=== PATIENT | female | born 1995 | race Two or more races ===

== ENCOUNTER 2024-06-01 02:27 | Inpatient (IN) | payer MEDICAID, SELFPAY ==
[2024-06-01] VITALS (226 sets, daily range): BP systolic 54–172; BP diastolic 25–104; PULSE 61–121; RESP 16–99; TEMP 36.6–37; O2SAT 79–100; BMI 30.2
[2024-06-01] MEDS: RINGERS LACTATED 1000 ML 1,000 ML 125 ML IV (02:45)
[2024-06-01 03:25] LABS: Basophils % (Auto) 1 % (0-2.5); Eosinophils # (Auto) 0.1 Thou/mm3 (0.0-0.5); Eosinophils % (Auto) 1 % (0-10); Hematocrit 36.3 % (36.0-46.0); Hemoglobin 12.8 g/dL (12.0-16.0); Immature Granulocytes % (Auto) 0 % (0-0); Immature Granulocytes Auto 0.03 Thou/mm3 (0.00-0.00); Lymphocytes # (Auto) 2.8 Thou/mm3 (1.0-4.8); Lymphocytes % (Auto) 36 % (10-50); Mean Corpuscular HGB Conc 35.3 g/dl (31.0-37.0); Mean Corpuscular Volume 85 fL (80-100); Monocytes # (Auto) 0.5 Thou/mm3 (0.0-0.8); Monocytes % (Auto) 6 % (0-12); Neutrophils # (Auto) 4.5 Thou/mm3 (1.8-7.7); Neutrophils % (Auto) 57 % (37-80); Nucleated Red Blood Cell % 0 /100 WBC (0); Platelet Count 231 Thou/mm3 (140-440); RDW Standard Deviation 42.9 fL (36.4-46.3); Red Blood Count 4.27 Miln/mm3 (4.00-5.20)
[2024-06-01] MEDS: RINGERS LACTATED 1000 ML 1,000 ML 999 ML IV ×4 (04:03→11:52)
[2024-06-01 04:09] LABS: Syphilis Nonreactive (Nonreactive)
[2024-06-01] MEDS: TERBUTALINE SULF INJ 1 MG/ML VIAL 0.25 MG SC (04:59)
--- NOTE | 2024-06-01 05:41 | PD.LDHP ---
Documentation for date of: 06/01/24 OB Labor/Induct. HPI History of Present Illness Chief complaint: 28 y/o 40w 0d presents to L&D in labor with SROM. : 3 Para: 2 Term pregnancies: 2 pregnancies: 0 Living children: 2 History of Abortions: Spontaneous and Elective: 0 History of Vaginal deliveries: 2 History of sections: No History of : No MIKE: 06/01/24 Gestational Age (weeks): 40 Gestational Age (days): 0 History of present illness: 28 y/o 40w 0d presents to L&D in labor with SROM. Cervix is 5-6 cm/60/-3 vertex grossly ruptured with clear fluids. GBS is neg. Pt's has been uncomplicated with hx of nvdx2. Last [facility] [place] sono shows fetsu is LGA Growth was 85%ile, and AC is 98%ile. EFW 3900g. Since pt has been admitted, fetus has had variable decels and prolonged deceleration with tachysystole, 1 dose of terbutaline given and IUPC placed. History of Present Dating criteria: LMP confirmed by 1st trimester US Adequate Care: Yes Ultrasounds: normal 1st trimester US and normal mid trimester US Obstetrical complications: none Medical complications: none Labs Maternal Blood Type: O Pos Labs: Positive: Rubella Titre, Negative: RPR, Hepatitis B, HIV, Chlamydia, Gonorrhea and Group Beta Strep and Unknown: Herpes Type 1, Herpes Type 2 and Covid-19 Review of Systems Review of Systems Systems Reviewed: All systems reviewed, normal except as documented Past Medical History Surgical History SURGICAL: Negative Section Meds Home Medications and Allergies Home Medications ?Medication ?Instructions ?Recorded ?Confirmed ?Type prenat.vits,joshua,vbf-gnpq-vwsmb 1 tab PO QDAY 09/18/21 06/01/24 History ferrous sulfate 325 mg (65 mg 325 mg PO BID 09/25/21 06/01/24 History iron) tablet (iron) Allergies Allergy/AdvReac Type Severity Reaction Status Date / Time No Known Allergies Allergy Verified 06/01/24 03:23 OB Exam Physical Exam Vital signs: Temp Pulse Resp BP Pulse Ox 98 F 114 H 18 138/76 H 100 06/01/24 04:33 06/01/24 05:28 06/01/24 02:19 06/01/24 05:28 06/01/24 05:36 Constitutional Constitutional: moderate distress (Secondary to painful conractions) Routine HEENT Exam Head: Present normocephalic and atraumatic Eye: Present EOMI, PERRL and normal accommodation ENT: Present mucous membranes moist Routine Neck Exam Neck: Present full ROM Routine Respiratory Exam Respiratory: Absent respiratory distress Routine Cardiovascular Exam Cardiovascular: Present RRR Routine Abdominal Exam Abdominal: Present soft Comments: Gravid Uterus EFW 3900g Routine Exam External: Present normal urethra appearance; Absent lesions or lacerations Detailed Labor and Delivery Exam Dilation (cm): 5-6 Effacement (%): 60 Cervix position: posterior station: -3 Consistency: soft Presentation: Vertex Membranes: ruptured Amniotic fluid: clear Baseline heart rate: 150 monitor accelerations: 15x15 monitor decelerations: Variable local intermodal truck driver variability: Moderate (11-25) Contraction frequency (min): 2-3 Routine Extremities Exam Extremities: Present full ROM Routine Back/Spine/Pelvis Exam Back/Spine: Present full ROM Routine Skin Exam Skin: Present intact, dry and warm Routine Neurological Exam Neurological: Present alert, oriented X3 and CN II-XII intact Routine Psychiatric Exam Psychiatric: Present normal affect and normal thought process OB Results Labs 06/01/24 02:45 Labs: Short CBC 06/01/24 Range/Units 02:45 WBC 8.0 (3.6-11.0) Thou/mm3 Hgb 12.8 (12.0-16.0) g/dL Hct 36.3 (36.0-46.0) % Plt Count 231 (140-440) Thou/mm3 OB Assessment & Plan Assessment and Plan (1) Normal labor: Status: Acute (2) 40 weeks gestation of : Status: Acute (3) LGA (large for gestational age) fetus: Status: Acute Additional Plan Induction method: none Plan: anticipate NVD and consult prn Additional Plan Comment: Routine admit orders US to get an EFW Placed an IUPC Dr. Richardson updated
--- NOTE | 2024-06-01 06:00 | XR_ITS ---
Examination: Complete OB ultrasound greater than 14 weeks Date and time of exam: June 01, 2024 at 0713 hrs. Indications: Leaking amniotic fluid beginning 0130 hrs. labor evaluation Findings: Viable intrauterine single fetus with single amniotic sac presentation cephalic spine anterior Cardiac motion 140 BPM Placenta fundal grade 2 Umbilical cord insertion seen Amniotic fluid index 5.0 cm Cervix 3.4 cm close Ovaries obscured by bowel gas. Composite estimated gestational age based on BPD, head circumference, abdominal circumference, femur length is 39 weeks 0 days Estimated weight 3645.8 g. Survey of intracranial anatomy, spinal anatomy, abdominal anatomy, four-chamber heart performed with no abnormalities identified. Impression: Viable intrauterine gestation cephalic presentation Estimated gestational age 39 weeks 0 days Amniotic fluid index 5.0 cm Estimated weight 3645.8 g.
[2024-06-01 06:15] LABS: Bilirubin,Urine Negative (Negative); Blood,Urine 1+ (Negative); Collection Type, Urine Clean Catch; Color,Urine Yellow (Lt Yel-Yel); Glucose, Urine Negative (Negative); Ketones,Urine Negative (Negative); Leukocyte Esterase,Urine Positive (Negative); Nitrite,Urine Negative (Negative); Protein,Urine 2+ (Neg - Trace); RBC,Urine 36 /hpf (0-3); Specific Gravity,Urine 1.017 (1.001-1.035); Squamous Epithelial Cell,Urine 47 /hpf (0-5); Urobilinogen,Urine Negative mg/dL (0.0-1.0); WBC,Urine 73 /hpf (0-5)
[2024-06-01 06:16] LABS: Clarity,Urine Turbid (Clear/Hazy)
[2024-06-01 06:50] LABS: Alanine Aminotransferase 26 U/L (10-49); Albumin, Serum 3.4 gm/dL (3.5-5.0); Albumin/Globulin Ratio 1.1 (1.2-2.2); Alkaline Phosphatase 172 U/L (46-116); Anion Gap 13 (7-16); Aspartate Amino Transferase 38 U/L (0-34); BUN/Creatinine Ratio 16 Ratio (12-20); Bilirubin,Total 0.2 mg/dL (0.3-1.2); Blood Urea Nitrogen 8 mg/dL (9-23); Calcium 8.8 mg/dL (8.3-10.6); Calcium (Corrected) 9.3 mg/dL (8.5-10.1); Carbon Dioxide 19.1 mMol/L (20.0-31.0); Chloride 105 mMol/L (98-107); Creatinine (Component) 0.5 mg/dL (0.6-1.3); Estimated Creatinine Clearance 156.1 mL/min (>60); Glucose 105 mg/dL (74-106); Osmolality,Calculated 272 (275-295); Potassium 3.2 mMol/L (3.4-5.1); Sodium 137 mMol/L (136-145); Total Protein 6.4 gm/dL (5.7-8.2); Uric Acid 4.8 mg/dL (3.1-7.8); eGFR > 60 See Note
--- NOTE | 2024-06-01 07:34 | ESPR_ITS ---
Documentation for date of: 06/01/24 OB Labor Progress Note Pain Control Pain control: tolerating well and epidural Pelvic Exam Dilation (cm): 8 Effacement (%): 100 station: -2 Amniotic membrane status: Ruptured Comments: Patient ruptured membranes around midnight admitted around 2 AM 5 to 6 cm has progressed to 8 cm by approximately 7:00 in the morning. Patient has an epidural. She is a -0-0-2 in 2017 by a CNM, third-degree perineal laceration. Status post vacuum-assisted vaginal delivery with Dr. Tan in 2021 unclear reason. Patient stated it was taking too long with a medial lateral episiotomy. There is a concern the baby is bigger. EFW by dairy manufacturing technologist at bedside is 8 pounds. Patient states both babies were 7 pounds. Head circumference 79 percentile abdominal circumference 48th percentile. Contractions Monitor mode: Internal Contraction frequency: 2-3 Contraction intensity: Moderate Status status: Category l Comments: Occasional variable decelerations with contractions. Good variability. Assessment and Plan Assessment: active labor Plan OB labor note: continuous present management Comments: Monitor tracing closely. Reexamine patient in about an hour.
[2024-06-01] MEDS: OXYTOCIN in NS 20 units 20 UNIT/1,000 ML BAG 125 UNIT IV (11:39)
[2024-06-01 11:53] LABS: Basophils % (Auto) 0 % (0-2.5); Eosinophils % (Auto) 0 % (0-10); Hematocrit 26.6 % (36.0-46.0); Hemoglobin 9.3 g/dL (12.0-16.0); Immature Granulocytes % (Auto) 1 % (0-0); Immature Granulocytes Auto 0.06 Thou/mm3 (0.00-0.00); Lymphocytes # (Auto) 1.3 Thou/mm3 (1.0-4.8); Lymphocytes % (Auto) 13 % (10-50); Mean Corpuscular Hemoglobin 30.2 pg (25.0-35.0); Mean Corpuscular Volume 86 fL (80-100); Monocytes # (Auto) 0.5 Thou/mm3 (0.0-0.8); Monocytes % (Auto) 5 % (0-12); Neutrophils # (Auto) 8.3 Thou/mm3 (1.8-7.7); Neutrophils % (Auto) 82 % (37-80); Nucleated Red Blood Cell % 0 /100 WBC (0); Platelet Count 200 Thou/mm3 (140-440); RDW Standard Deviation 44.1 fL (36.4-46.3); Red Blood Count 3.08 Miln/mm3 (4.00-5.20); White Blood Count 10.2 Thou/mm3 (3.6-11.0)
--- NOTE | 2024-06-01 11:58 | OBDSUM_ITS ---
Data ([facility]) Data Hx Section: No Maternal Blood Type: O Pos Rubella Titre: Positive RPR: Non-reactive Labs: Negative: RPR, Hepatitis B, HIV, Chlamydia, Gonorrhea and Group Beta Strep : 3 Para: 2 Term: 2 : 0 : 0 Delivery Data ([facility]) Labor Data Stimulated/Augmented: No Induction: No ROM Date: 06/01/24 ROM Time: 00:00 Rupture Type: SROM Amniotic Fluid: Clear Delivery Data EDC: 06/01/24 Labor Onset Stage 1 Date: 06/01/24 Labor Onset Stage 1 Time: 02:39 Labor Onset Stage 2 Date: 06/01/24 Labor Onset Stage 2 Time: 11:00 Delivery Date: 06/01/24 Delivery Time: 11:12 Gestational age (weeks): 40 Gestational age (days): 0 Placenta Delivery Date: 06/01/24 Placenta Delivery Time: 11:17 Length stage 2 (minutes): 20 Length stage 3 (minutes): 5 Delivered by: Maye Ashby Delivery nurse: Deloris Galvan Belt Molder at delivery: No Support person(s) at delivery: FOB Other staff at delivery: Nursery Nurse Other staff at delivery: Rupal Grey Delivery Method Delivery: Vaginal Delivery Type: Spontaneous Presentation: Vertex Position: OA Anesthesia Type Primary Anesthesia: Epidural Placenta Placenta Delivery: Spontaneous Placenta Cultures Obtained: No Placenta Sent for Examination: No Cord Sample: Cord Blood Obtained Episiotomy Episiotomy: None Perineal repair Sutures used for repair: 3.0 Vicryl and other (2-0 Chromic) EBL Estimated blood loss (ml): 700 Umbilical Cord Umbilical Vessels: 3 Nuchal Cord: None Body Cord: None Additional Procedures Patient is a 28-year-old -0-0-2 at 40 weeks. She presented around midnight to labor and delivery around 2:00 in the morning reporting ruptured membranes at midnight. Her cervical exam on presentation was 4 to 5 cm dilated. At 6:30 in the morning she had progressed to 8 cm dilated and had an epidural. I took over her care at 7 in the morning. She had a history of a vaginal delivery with third-degree tear with her first baby, and a vacuum-assisted vaginal delivery with the medial lateral episiotomy with her second baby according to delivery notes. Patient progressed to complete by about 10:45 In the morning she then pushed approximately 20 minutes delivering a liveborn female at 11:12 in the morning. Findings: liveborn female in the JEANNETTE presentation with no nuchal cord no meconium. Apgars were 9 and 9 , the weight was 8 pounds 9 ounces. The placenta was complete spontaneous delivering approximately 3 to 4 minutes after the baby delivered. The patient had a couple of brisk bleeding blood vessels in her vagina that was repaired using and 2-0 chromic and 3-0 Vicryl. Second- degree perineal laceration was repaired in a standard fashion. EBL was 700 cc. Fundus was firm. A second line was called for a stat CBC was called fhemoglobin predelivery was 12.7. Complications Complications: EBL 700 secondary to active vaginal bleeding from lacerations. No atony. [place] Data ([facility]) Data [place]'s name: Parisa Gender: Female Weight Grams: 3890 1 Minute Total: 9 5 Minute Total: 9
[2024-06-01] MEDS: TRANEXAMIC ACID 1,000 MG IVPB 1,000 MG/100 ML BAG 200 MG IV (13:11)
[2024-06-01] MEDS: IBUPROFEN TAB 400 MG TABLET 800 MG PO (15:05)
--- NOTE | 2024-06-01 15:38 | PC.NURSE ---
1123 b/p cuff readjusted, pt co of feeling dizzy, lightheaded, serial b/p started, iv bous started, 1127 new iv line started with bolus infusing, cbc collected and sent to lab, 1133 pt states feeling better, dizziness gone, will continue to monitor,
[2024-06-01 17:40] LABS: Basophils % (Auto) 0 % (0-2.5); Eosinophils % (Auto) 0 % (0-10); Immature Granulocytes % (Auto) 0 % (0-0); Immature Granulocytes Auto 0.03 Thou/mm3 (0.00-0.00); Lymphocytes # (Auto) 1.6 Thou/mm3 (1.0-4.8); Lymphocytes % (Auto) 17 % (10-50); Mean Corpuscular Hemoglobin 30.3 pg (25.0-35.0); Mean Corpuscular Volume 87 fL (80-100); Monocytes # (Auto) 0.7 Thou/mm3 (0.0-0.8); Monocytes % (Auto) 7 % (0-12); Neutrophils # (Auto) 7.2 Thou/mm3 (1.8-7.7); Neutrophils % (Auto) 75 % (37-80); Nucleated Red Blood Cell % 0 /100 WBC (0); Platelet Count 156 Thou/mm3 (140-440); RDW Standard Deviation 44.1 fL (36.4-46.3); Red Blood Count 2.31 Miln/mm3 (4.00-5.20); White Blood Count 9.6 Thou/mm3 (3.6-11.0)
[2024-06-01 17:45] LABS: Fibrinogen > 450 mg/dL (175-375)
[2024-06-01 17:46] LABS: INR 0.9 (0.9-1.3); Partial Thromboplastin Time 25.3 Seconds (22.0-36.0); Prothrombin Time 10.1 Seconds (9.0-12.2)
--- NOTE | 2024-06-01 17:46 | PC.NURSE ---
MD made aware of critical labs Hemoglobin 7.0 and Hematocrit of 20.0, MD ordered to transfuse 2 units of RBC's
[2024-06-01] MEDS: ACETAMINOPHEN 325 MG TABLET 650 MG PO (19:08)
[2024-06-01] MEDS: HYDROcodone/APAP 5/325 TABLET 1 TAB PO (20:35)
[2024-06-01] MEDS: FERROUS SULF 325 MG TABLET PO (20:35)
[2024-06-01] MEDS: DOCUSATE SOD 100 MG CAPSULE PO (20:35)
[2024-06-02 04:00] VITALS: BP 113/72; PULSE 74; RESP 18; TEMP 36.9; O2SAT 97
[2024-06-02] MEDS: IBUPROFEN TAB 400 MG TABLET 800 MG PO (04:11)
[2024-06-02 06:36] LABS: Basophils % (Auto) 0 % (0-2.5); Eosinophils % (Auto) 0 % (0-10); Hematocrit 25.9 % (36.0-46.0); Hemoglobin 8.9 g/dL (12.0-16.0); Immature Granulocytes % (Auto) 0 % (0-0); Immature Granulocytes Auto 0.03 Thou/mm3 (0.00-0.00); Lymphocytes # (Auto) 1.6 Thou/mm3 (1.0-4.8); Lymphocytes % (Auto) 18 % (10-50); Mean Corpuscular HGB Conc 34.4 g/dl (31.0-37.0); Mean Corpuscular Hemoglobin 30.1 pg (25.0-35.0); Mean Corpuscular Volume 88 fL (80-100); Monocytes # (Auto) 0.6 Thou/mm3 (0.0-0.8); Monocytes % (Auto) 7 % (0-12); Neutrophils # (Auto) 6.6 Thou/mm3 (1.8-7.7); Neutrophils % (Auto) 75 % (37-80); Nucleated Red Blood Cell % 0 /100 WBC (0); Platelet Count 142 Thou/mm3 (140-440); RDW Standard Deviation 46.1 fL (36.4-46.3); Red Blood Count 2.96 Miln/mm3 (4.00-5.20); White Blood Count 8.8 Thou/mm3 (3.6-11.0)
[2024-06-02 07:30] VITALS: BP 102/60; PULSE 68; RESP 18; TEMP 36.9; O2SAT 97
--- NOTE | 2024-06-02 08:39 | PD.LDDS ---
DS: Providers Provider Date of admission: 06/01/24 02:33 Primary care physician: Rafat Montero MD Admitting Provider: Rachana Hernandez CNM Attending Provider on Admission: Eugenia Richardson MD Consults: 06/01/24 11:54 Referral Routine Comment: Attending Provider on DC: Olaimde Trejo MD Discharging Provider: Olamide Trejo MD Anticipated date of discharge: 06/02/24 DS: Diagnosis Discharge Diagnosis (1) LGA (large for gestational age) fetus: Status: Acute Assessment & Plan: patient received 2 units of PRBC and Hb is 8.9 now , VSS , uterus firm and plan tp repeat H7H at 2 pm and if stable discharge home on oral iron and follow up with her Ob provider in 2 to 4 weeks (2) 40 weeks gestation of : Status: Acute (3) Normal labor: Status: Acute Assessment & Plan: had a vaginal delivery (4) hemorrhage: Status: Acute Assessment & Plan: resolved / received 2 units of PRBC (5) Vaginal delivery: Status: Inactive Assessment & Plan: on 06/01/2024 and had PPH and received 2 units PRBC , stable and doing well . meeting mile stones for discharge later today Summary/Hosp Course Brief History: 28 y/o 40w 0d presents to L&D in labor with SROM. Cervix is 5-6 cm/60/-3 vertex grossly ruptured with clear fluids. GBS is neg. Pt's has been uncomplicated with hx of nvdx2. Last [facility] sono shows fetsu is LGA Growth was 85%ile, and AC is 98%ile. EFW 3900g. Since pt has been admitted, fetus has had variable decels and prolonged deceleration with tachysystole, 1 dose of terbutaline given and IUPC placed. Time Spent with Patient Time attestation: Total time spent providing and/or coordinating discharge services: Exam Vital Signs Temp Pulse Resp BP Pulse Ox O2 Del Method O2 Flow Rate 98.4 F 68 18 102/60 97 Room Air 97 06/02/24 07:30 06/02/24 07:30 06/02/24 07:30 06/02/24 07:30 06/02/24 07:30 06/02/24 07:30 06/01/24 18:58 Constitutional Constitutional: no acute distress Routine Respiratory Exam Respiratory: Present chest non-tender, lungs clear, normal breath sounds, no resp distress and CTA bilaterally Routine Cardiovascular Exam Cardiovascular: Present RRR Routine Abdominal Exam Abdominal: Present soft and normoactive bowel sounds Routine Exam Comments: uterus firm and fundus non tender vaginal lochia normal perineum no hematoma Routine Extremities Exam Extremities: Present full ROM and pulses intact Routine Back/Spine/Pelvis Exam Back/Spine: Present full ROM Routine Skin Exam Skin: Present intact and normal turgor Routine Neurological Exam Neurological: Present alert, oriented X3, CN II-XII intact and normal reflexes Routine Psychiatric Exam Psychiatric: Present normal affect, normal thought process and cooperative Discharge Plan Plan Patient Disposition: HOME (Self Care) Disposition Comment: can be discharged if repeat H&H is stable Patient condition on transfer: Stable Prescriptions/Referrals Prescriptions/Med Rec: No Action prenat.vits,joshua,[id number]-zxxro Tablet 1 tab PO QDAY ferrous sulfate [iron] 325 mg (65 mg iron) Tablet 325 mg PO BID Referrals: Rafat Montero MD [Primary Care Provider] - Patient/Caregiver Discharge Instructions Discharge Activity: activity as tolerated and other Other Discharge Activity Instructions:: pelvic rest x 6 weeks perineal care ED precautions for heavy bleeding, fever follow up her OB in 2 to 4 weeks Tylenol/ Motrin 600 mgm po q 6 hours prn pain OTC Take oral IrON 1 pill q day OTC Other Discharge Diet Instructions: regular Education Materials: After a Vaginal , Breast Care After , Incision Care After Vaginal , : Caring for Yourself, Hemorrhage Print Language: Estonian Stand Alone Forms: Sylwia Award Info., Patient Portal Info Letter Discharge Order Discharge Orders: Discharge (Routine); Ordered 06/02/24 Ordered By: Olamide Trejo Planned Discharge Date 06/02/24 (4) hemorrhage Qualifiers: hemorrhage type: other immediate Qualified Code(s): O72.1 - Other immediate hemorrhage
[2024-06-02] MEDS: DOCUSATE SOD 100 MG CAPSULE PO (09:11)
[2024-06-02] MEDS: PRENATAL VITAMIN/FE FUM/FA TABLET 1 TAB PO (09:11)
[2024-06-02] MEDS: FERROUS SULF 325 MG TABLET PO (09:12)
--- NOTE | 2024-06-02 09:15 | PC.NURSE ---
Dr. Trejo at bedside poc explained to pt all questions and concerns addressed by MD. Dr. Trejo ordered CBC for 1400 today and if H&H with WNL pt can be discharged home.
[2024-06-02 11:30] VITALS: BP 94/55; PULSE 76; RESP 16; TEMP 36.7; O2SAT 98
[2024-06-02 14:22] LABS: Basophils % (Auto) 0 % (0-2.5); Eosinophils # (Auto) 0.1 Thou/mm3 (0.0-0.5); Eosinophils % (Auto) 1 % (0-10); Hematocrit 25.6 % (36.0-46.0); Immature Granulocytes % (Auto) 1 % (0-0); Immature Granulocytes Auto 0.05 Thou/mm3 (0.00-0.00); Lymphocytes # (Auto) 1.8 Thou/mm3 (1.0-4.8); Lymphocytes % (Auto) 19 % (10-50); Mean Corpuscular HGB Conc 34.4 g/dl (31.0-37.0); Mean Corpuscular Hemoglobin 30.4 pg (25.0-35.0); Mean Corpuscular Volume 89 fL (80-100); Monocytes # (Auto) 0.6 Thou/mm3 (0.0-0.8); Monocytes % (Auto) 7 % (0-12); Neutrophils # (Auto) 6.8 Thou/mm3 (1.8-7.7); Neutrophils % (Auto) 73 % (37-80); Nucleated Red Blood Cell # 0.02 Thou/mm3 (0.00-0.00); Nucleated Red Blood Cell % 0 /100 WBC (0); Platelet Count 152 Thou/mm3 (140-440); RDW Standard Deviation 48.7 fL (36.4-46.3); Red Blood Count 2.89 Miln/mm3 (4.00-5.20); White Blood Count 9.4 Thou/mm3 (3.6-11.0)
[2024-06-02 14:23] LABS: Hemoglobin 8.8 g/dL (12.0-16.0)
--- NOTE | 2024-06-02 14:31 | PC.NURSE ---
Dr. Trejo at nurses station results of 1400 CBC reported to MD, per MD pt can be d/c home today.
--- NOTE | 2024-06-02 15:21 | PC.NURSE ---
Per Dr. Trejo order pt to be d/c to [facility] if is kept over night and not d/c today.
[2024-06-02] MEDS: MEASLES, MUMPS & RUBELLA VACC 0.5 ML VIAL SCi (15:47)
--- NOTE | 2024-06-04 09:37 | CHAP ---
Addendum entered by Steve Mayfield 06/04/24 09:40: Spiritual Care Volunteer made the visit and said prayer on 06/01/24. Original Note: Patient was visited by the Spiritual Care Volunteer who prayed silently in [place] for them. (Volunteer was in the hospital from 9:30-10:35)
== END 2024-06-02 19:50 | disposition home or self-care (01) | DRG 560 ==
LOC: S4SX 11:49 → S4NX 16:27
PROVIDERS: Obstetrics & Gynecology; Admitting Provider Nurse Practitioner Women's Health; PCP Family Medicine; Visit Provider Student in an Organized Health Care Education/Training Program
DX: O48.0 Post-term pregnancy (principal); O36.63X0 Maternal care for excessive fetal growth, third trimester, not applicable or unspecified; O76 Abnormality in fetal heart rate and rhythm complicating labor and delivery; Z37.0 Single live birth; O72.1 Other immediate postpartum hemorrhage; Z3A.40 40 weeks gestation of pregnancy; O70.1 Second degree perineal laceration during delivery
CPT/HCPCS: 36415; 59409; 76805; 80053; 81001; 84550; 85025; 85384; 85610; 85730; 86780; 86850; 86900; 86901; 86923; 90707; 94762; J2590; J2795; J3105; J3490; J7120; P9016; A9270

== ENCOUNTER 2024-08-22 15:49 | Emergency (ER) | payer MEDICAID, SELFPAY ==
[2024-08-22 16:25] VITALS: BP 121/81; PULSE 80; RESP 18; TEMP 36.8; O2SAT 95
--- NOTE | 2024-08-22 16:29 | PD.EDRME ---
Rapid Medical Screening Exam RME Arrival date/time: 08/22/24 15:49 Chief Complaint: Shortness of Breath/Dyspnea Time Seen by Provider: 08/22/24 18:37 Vital signs: Vital Signs Temperature 98.3 F 08/22/24 16:25 Pulse Rate 80 08/22/24 16:25 Respiratory Rate 18 08/22/24 16:25 Blood Pressure 121/81 08/22/24 16:25 Pulse Oximetry (%) 95 08/22/24 16:25 Oxygen Delivery Method Room Air 08/22/24 16:25 Complains of chest pain with difficulty breathing and numbness and tingling to the upper and lower extremities that began approximate minutes prior 20 minutes ago. Patient was cleaning house. Vital signs reviewed by provider: Yes [facility] Narrative: 26-year-old female presents with 2 days of fevers. She last took Tylenol earlier today. She presents with a temp of 100.5. She states she is having some burning when she urinates. She also endorses bilateral flank tenderness. She does tolerate percussion of the flanks. Regardless with a fever urinary symptoms and tachycardia we will run some tests.
--- NOTE | 2024-08-22 16:30 | EKG_ITS ---
[facility] Test Date: 2024-08-22 Pat Name: ARIADNA AGUDELO Department: Room: - Gender: Female Loss Prevention Officer: : 1995 Requested By: Akbar Corrales Order Number: [id number] Reading MD: Akbar Corrales Measurements Intervals Levering Rate: 63 P: 17 DE: 132 QRS: 47 QRSD: 86 T: 14 QT: 408 QTc: 420 Interpretive Statements SINUS RHYTHM NONSPECIFIC T-WAVE ABNORMALITY No previous ECG available for comparison /store/S0/[id number]/ecg/[id number].pdf
--- NOTE | 2024-08-22 16:30 | XR_ITS ---
Examination: PA lateral chest 2 views TECHNIQUE: Upright PA lateral chest 2 views Date and time: August 22, 2024 1642 hours Comparison August 21, 2020 INDICATIONS: Sudden onset chest pain today. FINDINGS: Suspicious for early right base pneumonia Normal heart size Left lung clear IMPRESSION: Suspicious for early right base pneumonia
[2024-08-22 16:42] LABS: Basophils % (Auto) 0 % (0-2.5); Eosinophils # (Auto) 0.2 Thou/mm3 (0.0-0.5); Eosinophils % (Auto) 3 % (0-10); Hematocrit 36.2 % (36.0-46.0); Hemoglobin 12.3 g/dL (12.0-16.0); Immature Granulocytes % (Auto) 0 % (0-0); Immature Granulocytes Auto 0.03 Thou/mm3 (0.00-0.00); Lymphocytes # (Auto) 2.7 Thou/mm3 (1.0-4.8); Lymphocytes % (Auto) 32 % (10-50); Mean Corpuscular Hemoglobin 28.5 pg (25.0-35.0); Mean Corpuscular Volume 84 fL (80-100); Monocytes # (Auto) 0.7 Thou/mm3 (0.0-0.8); Monocytes % (Auto) 9 % (0-12); Neutrophils # (Auto) 4.6 Thou/mm3 (1.8-7.7); Neutrophils % (Auto) 55 % (37-80); Nucleated Red Blood Cell % 0 /100 WBC (0); Platelet Count 441 Thou/mm3 (140-440); RDW Standard Deviation 39.3 fL (36.4-46.3); Red Blood Count 4.32 Miln/mm3 (4.00-5.20); White Blood Count 8.2 Thou/mm3 (3.6-11.0)
[2024-08-22 17:04] LABS: B-Type Natriuretic Peptide 20 pg/mL (0-100)
[2024-08-22 17:06] LABS: Alanine Aminotransferase 128 U/L (10-49); Albumin, Serum 4.5 gm/dL (3.5-5.0); Albumin/Globulin Ratio 1.3 (1.2-2.2); Alkaline Phosphatase 145 U/L (46-116); Anion Gap 11 (7-16); Aspartate Amino Transferase 83 U/L (0-34); BUN/Creatinine Ratio 22 Ratio (12-20); Bilirubin,Total 0.2 mg/dL (0.3-1.2); Blood Urea Nitrogen 13 mg/dL (9-23); Carbon Dioxide 25.8 mMol/L (20.0-31.0); Chloride 103 mMol/L (98-107); Creatinine (Component) 0.6 mg/dL (0.6-1.3); Globulin 3.5 gm/dL (2.3-3.5); Glucose 100 mg/dL (74-106); Osmolality,Calculated 279 (275-295); Potassium 3.7 mMol/L (3.4-5.1); Sodium 140 mMol/L (136-145); eGFR > 60 See Note
[2024-08-22 17:35] LABS: Amphetamine/Methamp Scrn,U Negative (Negative); Barbiturate Screen,Urine Negative (Negative); Benzodiazepines Screen,Urine Negative (Negative); Benzoylecgonine Screen, Ur Negative (Negative); Fentanyl Screen,Urine Negative (Negative); Opiate Screen,Urine Negative (Negative); THC Screen,Urine Negative (Negative)
--- NOTE | 2024-08-22 19:00 | PD.EDSOB ---
ED SOB =RME/HPI General Chief Complaint: Shortness of Breath/Dyspnea Stated Complaint: Shortness of breath Time Seen by Provider: 08/22/24 18:37 Source: patient Arrival date/time: 08/22/24 15:49 Mode of arrival: ambulatory Limitations: no limitations RME / HPI RME / HPI Narrative: 08/22/24 15:44 28-year-old female presents to the ED with a complaint of difficulty breathing and shortness of breath that began a couple of days ago. MD Complaint: shortness of breath and cough Onset (ago): day(s) (X 2 DAYS) Relieving factors: nothing Exacerbating factors: nothing Treatment prior to arrival: none Related Data Home oxygen amount: none Home Medications ?Medication ?Instructions ?Recorded ?Confirmed prenat.vits,joshua,[id number] 1 tab PO QDAY 09/18/21 06/01/24 ferrous sulfate 325 mg (65 mg 325 mg PO BID 09/25/21 06/01/24 iron) tablet (iron) Previous Rx's ?Medication ?Instructions ?Recorded acetaminophen 325 mg tablet 650 mg (2 x 325 mg) PO Q4H PRN See 06/02/24 Comments #30 tabs ferrous sulfate 325 mg (65 mg 325 mg PO BID #30 tabs 06/02/24 iron) tablet,delayed release ibuprofen 600 mg tablet 800 mg (1.3333 x 600 mg) PO Q8H 06/02/24 PRN See Comments #30 tabs misoprostol 200 mcg tablet 200 mcg PO QID #10 tabs 06/02/24 vits no.130-ferrous fum 1 tab PO QDAY #30 tabs 06/02/24 27 mg iron-folic acid 800 mcg tablet ( Vitamin) albuterol sulfate 90 mcg/actuation 2 puff inhalation Q6H PRN 08/22/24 aerosol inhaler (Ventolin HFA) shortness of breath or wheezing #6.7 grams azithromycin 250 mg tablet 250 mg PO QDAY 6 days #6 tabs 08/22/24 (Zithromax Z-Magan) Allergies Allergy/AdvReac Type Severity Reaction Status Date / Time No Known Allergies Allergy Verified 08/22/24 15:53 Review of Systems Constitutional Constitutional: Reports system reviewed and no additional complaints, except as documented Eyes Eyes: Reports system reviewed and no additional complaints, except as documented, Denies dry eyes, Denies exophthalmos and Reports floaters Cardiovascular Cardiovascular: Denies chest pain with activity and Denies claudication ED Exam General Limitations: Present no limitations General appearance: Present alert and in no apparent distress Head Head exam: Present atraumatic Eye Eye exam: Present normal appearance, PERRL and EOMI ENT ENT exam: Present normal exam, normal oropharynx and mucous membranes moist Neck Neck exam: Present normal inspection, full ROM and trachea midline Chest Chest inspection: Present normal inspection and symmetric chest wall rise Respiratory Respiratory exam: Present normal lung sounds bilaterally (There are no adventitious breath sounds present. There is no wheezing present. Lungs are clear throughout) Cardiovascular Cardiovascular exam: Present regular rate, normal rhythm and normal heart sounds Abdominal Exam Abdominal exam: Present soft and normal bowel sounds Extremities Exam Extremities exam: Present normal inspection and full ROM Back Exam Back exam: Present normal inspection and full ROM Neurological Exam Neurological exam: Present alert, oriented X3 and CN II-XII intact Psychiatric Psychiatric exam: Present normal affect and normal mood Skin Skin exam: Present warm, dry, intact and normal color Course Course Course Narrative: Patient will be worked up for pneumonia to include EKG, chest x-ray, CMP. Quality Measures none Orders Category Date Time Status EKG (ED ONLY) *Do not use* NOW Care 08/22/24 16:30 Completed CXR2 [XR chest 2V] Stat Exams 08/22/24 16:30 Completed EKG (ED Only) Stat Exams 08/22/24 16:30 Ordered BNP [B-Type Natriuretic Peptide] Stat Lab 08/22/24 16:33 Completed CBC Stat Lab 08/22/24 16:33 Completed CMP [Comprehensive Metabolic Panel] Stat Lab 08/22/24 16:33 Completed Drug Screen,Urine Stat Lab 08/22/24 17:08 Completed Vital Signs Vital signs: Vital Signs Temperature 98.3 F 08/22/24 16:25 Pulse Rate 80 08/22/24 16:25 Respiratory Rate 18 08/22/24 16:25 Blood Pressure 121/81 08/22/24 16:25 Pulse Oximetry (%) 95 08/22/24 16:25 Oxygen Delivery Method Room Air 08/22/24 16:25 Pulse ox 95% room air Shortness of Breath / Dyspnea MDM Narrative MDM Narrative:: Patient will have a gram of Rocephin while she is here and I will send to the pharmacy of her choice Zithromax as well as a albuterol inhaler Patient data External records reviewed:: Other (specify) Clinical information provided by:: none Social determinants that could affect healthcare access:: none Patient has the following chronic illnesses:: Denies How is presenting disease/condition affected by chronic disease/condition?: no chronic disease Evaluation data The following diagnostics were reviewed and interpreted by me:: radiology exam(s) Lab and/or radiology exams considered but not ordered:: Chest x-ray demonstrates pneumonia otherwise there is no foreign body seen and the cardiac silhouette is within his normal limits. Interpretation Summary: Not applicable Medications / Prescriptions Medications or Prescriptions considered but not ordered:: Not applicable Medication administrations:: Rocephin 1 g IM Consultations Consultation(s) initiated? (list below): No Consultation #1 (Physician, Specialty, Details): N/A Diagnosis Shortness of Breath Differential Diagnosis: acute exacerbation of chronic obstructive airways disease, congestive heart failure and community acquired pneumonia Most likely diagnosis given after review of the tests above:: Pneumonia Admission Indicated Admission indicated?: not indicated Admission Request Was there a request for admission?: No Disposition Plan Disposition Plan: Discharge Discharge Attestation Discharge Attestation: The patient and all family members were given an opportunity to ask questions and understood the discharge instructions. Discharge instructions specifically effects, indications for sooner follow up or return to the emergency department, and the expected course of current diagnosis. Patient condition: Stable Discharge Plan Plan Patient Disposition: HOME (Self Care) Discharge Disposition comment: Patient discharged in no apparent distress Patient condition on transfer: Stable Prescriptions/Referrals Prescriptions/Med Rec: New azithromycin [Zithromax Z-Magan] 250 mg tablet 250 mg PO QDAY 6 Days Qty: 6 0RF Rx Instructions: start on day 2 of therapy albuterol sulfate [Ventolin HFA] 90 mcg/actuation HFA aerosol inhaler 2 puff inhalation Q6H PRN (Reason: shortness of breath or wheezing) Qty: 6.7 0RF No Action prenat.vits,joshua,[id number]-jethh Tablet 1 tab PO QDAY ferrous sulfate [iron] 325 mg (65 mg iron) Tablet 325 mg PO BID acetaminophen 325 mg Tablet 650 mg PO Q4H PRN (Reason: See Comments) Qty: 30 0RF ferrous sulfate 325 mg (65 mg iron) Tablet,Delayed Release (Dr/Ec) 325 mg PO BID Qty: 30 0RF Vitamin 27 mg iron- 800 mcg Tablet 1 tab PO QDAY Qty: 30 0RF ibuprofen 600 mg tablet 800 mg PO Q8H PRN (Reason: See Comments) Qty: 30 0RF misoprostol 200 mcg tablet 200 mcg PO QID Qty: 10 0RF Referrals: Rafat Montero MD [Primary Care Provider] - In 1 week Problem List Clinical Impression: Pneumonia Patient/Caregiver Discharge Instructions Discharge Activity: activity as tolerated Education Materials: ED Pneumonia (Adult) Print Language: Polish PA/POLICE ACADEMY PROGRAM COORDINATOR Supervising Physician PA/POLICE ACADEMY PROGRAM COORDINATOR Supervising Physician: MIKO
[2024-08-22] MEDS: cefTRIAXone 1,000 MG, LIDOCAINE 1% 20 ML 2.1 ML IM (19:36)
== END 2024-08-22 19:52 | disposition home or self-care (01) ==
PROVIDERS: Physician Assistant; Emergency Provider Emergency Medicine; PCP Family Medicine
DX: J18.9 Pneumonia, unspecified organism (principal)
CPT/HCPCS: 36415; 71046; 80053; 80307; 83880; 85025; 93005; 96372; 99283; J0696; J3490